=== PATIENT | male | born 2000 | race Two or more races ===

== ENCOUNTER 2024-12-13 12:30 | Emergency (ER) | payer MEDICAID, SELFPAY ==
[2024-12-13 12:40] VITALS: BP 128/74; PULSE 74; RESP 18; TEMP 36.9; O2SAT 97
[2024-12-13 12:41] VITALS: BMI 30.1
--- NOTE | 2024-12-13 13:20 | EDNOTE_ITS ---
ED Eye Problem RME/HPI General Chief complaint: Eye Problems Stated complaint: Battery acid in both eyes Time Seen by Provider: 12/13/24 13:02 Arrival date/time: 12/13/24 12:30 RME / HPI RME / HPI Narrative: 24-year-old male patient with no significant medical history, came in for evaluation regarding chemical exposure bilateral eyes. Patient was working with his car, car battery fluid splashed to his both eyes resulting into eye pain described as dull ache severity moderate. Patient denies any blurry vision. Incident happened 1 hour prior to ER visit. Related Data Previous Rx's ?Medication ?Instructions ?Recorded hydrocodone 5 mg-acetaminophen 325 1 tab PO BID PRN pa in #10 tabs 10/07/ mg tablet erythromycin 5 mg/gram (0.5 %) eye 0.5 inch ophthalmic (eye) TID 7 12/13/24 ointment days #3.5 grams Allergies Allergy/AdvReac Type Severity Reaction Status Date / Time No Known Allergies Allergy Verified 12/13/24 12:31 Review of Systems Review of Systems Narrative Review of Systems: Review of system reviewed and within normal limits except mentioned in HPI ED Exam Narrative Physical exam: VITAL SIGNS: Reviewed. GENERAL APPEARANCE: Alert and interactive, follows commands, no acute distress, HEAD AND FACE: Non-traumatic. ENT: PERRL, injected conjunctiva, eyelid no trauma, Mucous membrane moist. NECK: Supple, nontender, no nuchal rigidity. CHEST: No tenderness, no crepitus, no paradoxical movement, no retractions. LUNGS: Clear, well ventilated, symmetric, no rales, no wheezing, no ronchi, no stridor, good breath sounds bilaterally. HEART: Regular rate, regular rhythm, no murmur, no gallops. ABDOMEN: Soft, positive bowel sounds, nondistended, no guarding, nontender, no rebound, no masses, RECTAL: Deferred. GENITAL: Deferred. NEUROLOGICAL: Gross motor function intact sensory function intact, Appropriate for age. MUSCULOSKELETAL: low back nontender, full range of motion. EXTREMITIES: Nontender, full range of motion. SKIN: Color pink, dry, no rash, no lacerations, no abrasions, no contusions. LYMPHATICS: Deferred. Course Quality Measures none Orders Category Date Time Status ED Eye Irrigation ONCE Care 12/13/24 13:19 Active TETRACAINE Op [place] 0.5% [Pontocaine Op [place]over 0.5%] Med 12/13/24 13:19 Discontinued 1 drop BOTH EYES X1 ONE Vital Signs Vital signs: Vital Signs Temperature 98.4 F 12/13/24 12:40 Pulse Rate 74 12/13/24 12:40 Respiratory Rate 18 12/13/24 12:40 Blood Pressure 128/74 12/13/24 12:40 Pulse Oximetry (%) 97 12/13/24 12:40 Oxygen Delivery Method Room Air 12/13/24 12:40 Eye MDM Narrative MDM Narrative:: 24-year-old male patient with no significant medical history, came in for evaluation regarding chemical exposure bilateral eyes. Patient was working with his car, car battery fluid splashed to his both eyes resulting into eye pain described as dull ache severity moderate. Patient denies any blurry vision. Incident happened 1 hour prior to ER visit. Called poison control who recommends copious saline eyewash. Patient received 2 L of NS eyewash 1 L each eye Prior to discharge, patient told me that no pain in both eyes. Patient is back to baseline. Patient will be sent home on erythromycin eye cream for prophylactic antibiotic so that the patient will not develop. Eye infection. Patient data External records reviewed:: None Clinical information provided by:: patient Social determinants that could affect healthcare access:: none Patient has the following chronic illnesses:: None How is presenting disease/condition affected by chronic disease/condition?: no chronic disease Evaluation data The following diagnostics were reviewed and interpreted by me:: other (specify) (None) Lab and/or radiology exams considered but not ordered:: None Interpretation Summary: None Medications / Prescriptions Medications or Prescriptions considered but not ordered:: None Medication administrations:: Medication Administration History Discontinued Medications Tetracaine HCl (Tetracaine Pf Op [place] 0.5% 4 Ml Drpette) 1 drop BOTH EYES X1 ONE Stop: 12/13/24 13:20 Last Admin: 12/13/24 13:25 Dose: 1 drop Documented By: TYRA Comments: MED GIVEN BY ОЛЕГ BILL Tetracaine Consultations Consultation(s) initiated? (list below): No Diagnosis Eye Problem Differential Diagnosis: corneal abrasion and conjunctivitis Most likely diagnosis given after review of the tests above:: Chemical exposure both eyes Admission Indicated Admission indicated?: not indicated Admission Request Was there a request for admission?: No Disposition Plan Disposition Plan: Discharge Discharge Attestation Discharge Attestation: The patient was given an opportunity to ask questions and understood the discharge instructions. Discharge instructions specifically effects, indicat ions for sooner follow up or return to the emergency department, and the expected course of current diagnosis. Patient condition: Stable Discharge Plan Plan Patient Disposition: HOME (Self Care) Disposition Comment: Stable Prescriptions/Referrals Prescriptions/Med Rec: New erythromycin 5 mg/gram (0.5 %) ointment 0.5 inch ophthalmic (eye) TID 7 Days Qty: 3.5 0RF No Action hydrocodone-acetaminophen 5-325 mg tablet 1 tab PO BID MDD 10 PRN (Reason: pain) Qty: 10 0RF Referrals: No Primary/Family,Physician [Primary Care Provider] - In 1 week Problem List Clinical Impression: Chemical exposure of eye Patient/Caregiver Discharge Instructions Discharge Activity: activity as tolerated Education Materials: ED Eye Exposure, Chemical Additional Instructions: Thank you for the opportunity for serving you today. You are stable for discharged . You are advised to: Follow-up with your PCP in 1 to 2 days Return to ED for worsening of symptoms Increase oral fluids Apply the antibiotic ointment as prescribed Return to emergency room for new onset of eye pain or blurry vision Print Language: Welsh Stand Alone Forms: [employer] Info., Patient Portal Info Letter
[2024-12-13] MEDS: TETRACAINE PF OP SOL 0.5% 4 ML DRPETTE 1 DROP BOTH EYES (13:25)
--- NOTE | 2024-12-13 14:06 | PC.NURSE ---
CALL POISON CONTROL AND SPOKE TO LATA WHO GAVE THE FOLLOWING RECOMMENDATIONS: CHECK PH AFTER EYE IRRITATION, PH SHOULD BE CLOSE TO 7 IF PH IS NOT, DUE q15 EYE FLUSHES UNTIL THE PH IS CLOSE TO 7 OR AT 7. ОЛЕГ BILL MADE AWARE
[2024-12-13 14:37] VITALS: BP 107/82; PULSE 66; RESP 16; TEMP 36.8; O2SAT 97
== END 2024-12-13 15:54 | disposition home or self-care (01) ==
PROVIDERS: Emergency Provider Emergency Medicine
DX: Z77.098 Contact with and (suspected) exposure to other hazardous, chiefly nonmedicinal, chemicals (principal); H57.10 Ocular pain, unspecified eye
CPT/HCPCS: 99283